=== PATIENT | female | born 1955 ===

== ENCOUNTER 2017-07-12 07:04 | Day surgery (SDC) | payer MEDICAID ==
[2017-07-12] MEDS ORDERED: Lactated Ringer's 1,000 ML IV ONE ×2 (07:56)
[2017-07-12] MEDS ORDERED: Midazolam 2 MG/2 ML VIAL ONE (08:05)
[2017-07-12] MEDS ORDERED: Propofol 10 mg/ml Inj (20 ML) ONE (08:06)
[2017-07-12] MEDS ORDERED: Lidocaine PF 2% (5 ml) Inj (For Cardiac Arrhy) IV ONE (08:06)
[2017-07-12 08:23] VITALS: RESP 17; TEMP 97
[2017-07-12 08:38] VITALS: BP 94/60; PULSE 68; O2SAT 100
== END 2017-07-12 09:03 | disposition home or self-care (01) ==
LOC: H.ENDO 07:04
PROVIDERS: ATTEND Internal Medicine Gastroenterology
DX: R10.13 Epigastric pain (principal); E11.9 Type 2 diabetes mellitus without complications; I10 Essential (primary) hypertension; K29.50 Unspecified chronic gastritis without bleeding
CPT/HCPCS: 43239; 82948; 88305; J2250; J2704; J2765; J7120